=== PATIENT | male | born 1990 | race Caucasian/White ===

== ENCOUNTER 2018-06-23 01:11 | Emergency (ER) | payer OTHER ==
[~2018-06-23] VITALS: Ht 182.9 cm; Wt 52.5 kg
[2018-06-23 01:25] VITALS: BP 136/85
[2018-06-23] MEDS ORDERED: ibuprofen tablet 400 MG TABLET PO ONE (01:50)
[2018-06-23] MEDS ORDERED: sulfamethoxazole/trimethoprim DS (800/160mg) tablet PO ONE (01:50)
[2018-06-23] MEDS ORDERED: bacitracin 15gm ointment TP ONE (01:50)
[2018-06-23] MEDS ORDERED: LIDOcaine 1.5% w/epinephrine 1:200,000 5ml ampul IJ ONE (01:50)
[2018-06-23] MEDS ORDERED: SULF1TAB49 PO (02:40)
== END 2018-06-23 02:47 | disposition home or self-care (01) ==
LOC: ER 01:11
DX: L02.411 Cutaneous abscess of right axilla (principal); K13.0 Diseases of lips; Z56.0 Unemployment, unspecified; Z59.0 Homelessness
CPT/HCPCS: 10061; 99284; J3490

== ENCOUNTER 2023-12-23 13:48 | Emergency (ER) | payer MEDICAID, OTHER ==
[~2023-12-23] VITALS: Ht 182.9 cm; Wt 67.4 kg
[2023-12-23 13:49] VITALS: BP 127/77; PULSE 106; RESP 16; TEMP 98.9; O2SAT 100
[2023-12-23 14:12] LABS: BILIRUBIN,URINE NEGATIVE (Neg); CLARITY,URINE SLIGHTLY CLOUDY (Clear); COLOR,URINE YELLOW (Yellow); GLUCOSE, URINE NEGATIVE (Neg); KETONES,URINE NEGATIVE (Neg); LEUKOCYTE ESTERASE ,URINE NEGATIVE (Neg); NITRITES, URINE NEGATIVE (Neg); OCCULT BLOOD,URINE NEGATIVE (Neg); PH,URINE 5.5 (4.8-8.0); PROTEIN,URINE NEGATIVE (Neg); UROBILINOGEN,URINE 0.2 E.U/dL (0.2-1.0)
[2023-12-23 14:19] LABS: UA COLLECTION TYPE CLN CATCH MIDSTREAM
[2023-12-23 14:21] LABS: MUCUS STRANDS MODERATE /LPF (Neg); SQUAMOUS EPITHELIAL CELL,UR FEW /LPF (FEW)
[2023-12-23 14:22] LABS: BACTERIA,URINE FEW /HPF (Neg); RBC,URINE 0-2 /HPF (0-2); SPERM FEW /HPF (NEGATIVE); WBC,URINE 0-4 /HPF (0-4)
[2023-12-23 15:36] LABS: STREP A SCREEN NEGATIVE (Neg)
[2023-12-23] MEDS ORDERED: ONDA4TAB12 PO (15:40)
== END 2023-12-23 16:03 | disposition home or self-care (01) ==
LOC: ER 13:49
DX: B34.9 Viral infection, unspecified (principal); R11.10 Vomiting, unspecified
CPT/HCPCS: 81001; 87081; 87502; 87503; 87880; 99283

== ENCOUNTER 2025-03-19 15:31 | Emergency (ER) | payer MEDICAID ==
[~2025-03-19] VITALS: Ht 177.8 cm; Wt 68.2 kg
[~2025-03-19 15:31] MED LIST: ONDA-243 PO
--- NOTE | 2025-03-19 16:42 | RADIOLOGY REPORT ---
Indication: 3rd Finger Pain Technique: DI FINGER(S)FINGERS Comparison: None FINDINGS/IMPRESSION: Possible fracture 3rd distal phalanx distal tuft is minimally displaced. There is surrounding soft ti ssue edema and emphysema consistent with laceration. No radiopaque foreign body seen.
[2025-03-19] MEDS: ketorolac trometh 15mg/ml vial 15 MG/ML ML IM ONE (18:07)
--- NOTE | 2025-03-19 18:17 | Physician Documentation ---
History of Present Illness ~ Chief Complaint: Finger pain Stated Complaint: R HAND INJURY Time Seen by MD: 17:23 Primary Medical Doctor: NONE HPI This is a 34-year-old male who presents with pain and laceration to his distal dorsal left 3rd finger finger was crushed by a large rock earlier today. Patient is not letting myself or staff touch the finger for a physical exam, declining topical anesthetic or local anesthetic, and is declining irrigation of the wound. Patient reports tetanus shot in the last five years. Reports primary reason for visit though the emergency department was to find out if it was broken. Patient reports no other acute symptoms or concerns including no other injuries. Tetanus within 5 years: Yes Medication Reconciliation Allergies: Coded Allergies: No Known Allergies (Unverified , 03/19/25) Scheduled Ibuprofen (Ibuprofen), 1 TAB PO Q8H Scheduled PRN ONDANSETRON ODT 4mg tablet (Ondansetron Odt), 1 TAB PO Q6H PRN PRN for nausea/vomiting Past Medical History Past Medical History: No Pertinent History Past Surgical History: no surgical history Alcohol Use: Heavy Drug Use: none Lives with: Family Lives In: Home, Homeless Occupation: unemployed Review of Systems ROS Pain to right 3rd finger as stated above in the HPI, otherwise all systems are reviewed and negative. Physical Exam Vital Signs: Temperature: 97.8, Source: Temporal, Heart Rate: 132, Respiratory Rate: 18, BP: 135/70, Pulse Oximetry: 99, Weight: 68.250 Physical Exam VITALS: Reviewed and as above. GENERAL: Alert, nontoxic appearing, no apparent distress. RESPIRATORY: No increased work of breathing, no respiratory distress, speaking in full clear sentences MUSCULOSKELETAL: Right 3rd finger no obvious deformity, mild swelling to the distal tip SKIN: Dorsal aspect of distal right 3rd finger 2 cm C-shaped skin avulsion, subungual hematoma Progress Results/Orders Results/Orders Orders - ANASTACIO ZELAYA Finger(S) (03/19/25 16:17) Completed Orders - ANASTACIO ZELAYAP Finger(S) (03/19/25 16:17) Ketorolac Trometh 15mg/Ml Vial (Toradol (03/19/25 17:35) Ibuprofen Tablet (Motrin Tablet) (03/19/25 18:25) Vital Signs 03/19/25 03/19/25 15:43 18:33 Temp 97.8 98.6 Pulse 132 118 Resp 18 20 B/P (MAP) 135/70 132/68 Pulse Ox 99 99 EKG/XRAY/CT/US/VASC/MRI Bone/Soft Tissue X-Ray (Ext.) : Additional Comment Indication: 3rd Finger Pain Technique: DI FINGER(S)FINGERS Comparison: None FINDINGS/IMPRESSION: Possible fracture 3rd distal phalanx distal tuft is minimally displaced. There is surrounding soft tissue edema and emphysema consistent with laceration. No radiopaque foreign body seen. Electronically Signed by:LYDIA HUANG MD Date & Time: 03/19/251640 Dictated by: LYDIA HUANG MD Dictation date and time: 03/19/251640 I have reviewed and agree with the radiology report. I have reviewed and interpreted the imaging as: No dislocation. Possible fracture of distal phalanx, no radiopaque foreign body observed Medical Decision Making Findings This 34-year-old male presented with pain in laceration to his right 3rd finger, patient would not allow me to closely examined the finger or provide local anesthetic. Patient additionally declined irrigation of the wound and reported he only came to the emergency department for x-ray to confirm that it was not broken. X-ray did demonstrate evidence of possible fracture to distal tip of 3rd phalanx, the finger appeared neurovascularly intact as patient reported no numbness or tingling in the area and the color was similar to adjoining fingers. Patient declined further treatment or evaluation and the wound was dressed by nursing staff. Patient provided careful return to care precautions which he verbalized understanding of. Finger Diff Dx:Considerations: Include: Abrasion, Cellulitis, Contusion, Dislocation, Fracture, Hematoma, Laceration, Neurovascular injury, Open fracture, Subungual hematoma, Other (Retained foreign body) Departure Disposition: 01 HOME / SELF CARE / HOMELESS Impression: Primary Impression: Fracture, finger, distal phalanx Qualified Codes: S62.662A - Nondisplaced fracture of distal phalanx of right middle finger, initial encounter for closed fracture Additional Impression: Avulsion, skin Condition: Improved Discharge Instructions: Fracture, Finger Additional Instructions: Without a physical exam I can not determine if this laceration involves your joint or bone and by not thoroughly cleaning the area in the emergency department you are at a higher risk of infection. Keep the area clean dry and covered, change the dressing at least once a day or whenever it becomes soiled. You may use the prescribed ibuprofen as needed for pain, you may add Tylenol to this medication as needed for pain as directed by [id number] packaging. Please return to the emergency department if you change your mind about physical exam or irrigation of the wound. Please follow up with your primary care provider in the next few days. Please return to the emergency department for any new or worsening concerning symptoms including but not limited to this is an infection to the area such as increased pain and swelling to the area, redness and swelling extended from the finger and to your hand, or if you develop a feve r over 100.4. Referrals: NO PRIMARY CARE PROVIDER (PCP) Prescriptions Ibuprofen (Ibuprofen) 800 Mg Tablet 1 TAB PO Q8H for pain for 10 Days, #30 TAB 0 Refills Prov: ANASTACIO ZELAYA 03/19/25 Education Educated: Patient, Family Educated regarding: diagnosis, treatment, prognosis, need for follow up Signature Scribe Signature: No scribe Attestation: The note accurately reflects work and decisions made by me.ARTURO Nagy 03/20/25 02:28 ANASTACIO ZELAYA Mar 19, 2025 18:17
[2025-03-19] MEDS ORDERED: IBUP-1986 PO (18:24)
[2025-03-19] MEDS ORDERED: ibuprofen tablet 400 MG TABLET PO ONE (18:25)
[2025-03-19 18:33] VITALS: BP 132/68; PULSE 118; RESP 20; TEMP 98.6; O2SAT 99
== END 2025-03-19 18:36 | disposition home or self-care (01) ==
LOC: ER 15:31
DX: S61.213A Laceration without foreign body of left middle finger without damage to nail, initial encounter (principal); F10.90 Alcohol use, unspecified, uncomplicated; Z79.899 Other long term (current) drug therapy; Z56.0 Unemployment, unspecified; Z59.00 Homelessness unspecified; W23.0XXA Caught, crushed, jammed, or pinched between moving objects, initial encounter; Y93.89 Activity, other specified; Y92.89 Other specified places as the place of occurrence of the external cause; Y99.8 Other external cause status; Y90.9 Presence of alcohol in blood, level not specified
CPT/HCPCS: 73140; 99283